=== PATIENT | male | born 1945 | race Caucasian/White ===

== ENCOUNTER → 2019-12-14 11:00 | Outpatient (BNVA) | payer MEDICARE, OTHER, SELFPAY | PROVIDERS: Family Provider Family Medicine; PCP Family Medicine; Visit Provider Nurse Practitioner Family | DX: I10 Essential (primary) hypertension (principal); N52.9 Male erectile dysfunction, unspecified; Z79.899 Other long term (current) drug therapy; E04.1 Nontoxic single thyroid nodule; E78.2 Mixed hyperlipidemia; R53.83 Other fatigue; E11.9 Type 2 diabetes mellitus without complications; R79.89 Other specified abnormal findings of blood chemistry | CPT/HCPCS: 80053; 80061; 81001; 83036; 84403; 84439; 84443; 84481; 85025 ==

== ENCOUNTER → 2020-02-12 08:52 | Outpatient (BNVA) | payer MEDICARE, OTHER, SELFPAY | PROVIDERS: Family Provider Family Medicine; PCP Family Medicine; Visit Provider Nurse Practitioner Family | DX: E11.9 Type 2 diabetes mellitus without complications (principal); R79.89 Other specified abnormal findings of blood chemistry; E04.1 Nontoxic single thyroid nodule; I10 Essential (primary) hypertension; E78.2 Mixed hyperlipidemia | CPT/HCPCS: 80053; 80061; 81001; 83036; 84403; 84439; 84443; 84481; 85025 ==

== ENCOUNTER → 2020-05-15 14:09 | Outpatient (BNVA) | payer MEDICARE, OTHER, SELFPAY | PROVIDERS: Family Provider Family Medicine; PCP Nurse Practitioner Family; Visit Provider Dermatology | DX: L30.0 Nummular dermatitis (principal); L85.3 Xerosis cutis; L57.0 Actinic keratosis; B07.8 Other viral warts | CPT/HCPCS: 17000; 17003; 99203 ==

== ENCOUNTER → 2020-11-11 00:01 | Outpatient (BNVA) | payer MEDICARE, OTHER, SELFPAY | PROVIDERS: Family Provider Family Medicine; PCP Nurse Practitioner Family; Visit Provider Nurse Practitioner Family | DX: E78.2 Mixed hyperlipidemia (principal); E11.9 Type 2 diabetes mellitus without complications; E04.1 Nontoxic single thyroid nodule; E55.9 Vitamin D deficiency, unspecified; I10 Essential (primary) hypertension; M54.9 Dorsalgia, unspecified; G89.29 Other chronic pain | CPT/HCPCS: 80053; 80061; 81003; 82306; 83036; 84439; 84443; 84481; 85025 ==

== ENCOUNTER → 2021-02-23 09:07 | Outpatient (BNVA) | payer MEDICARE, OTHER, SELFPAY | PROVIDERS: Family Provider Family Medicine; PCP Nurse Practitioner Family; Visit Provider Nurse Practitioner Family | DX: E11.9 Type 2 diabetes mellitus without complications (principal); E78.2 Mixed hyperlipidemia; E04.1 Nontoxic single thyroid nodule; R79.89 Other specified abnormal findings of blood chemistry; E55.9 Vitamin D deficiency, unspecified; I10 Essential (primary) hypertension | CPT/HCPCS: 80053; 80061; 81003; 83036; 84402; 84403; 84439; 84443; 84481; 85025 ==

== ENCOUNTER → 2021-05-15 14:44 | Outpatient (BNVA) | payer MEDICARE, OTHER, SELFPAY | PROVIDERS: PCP Nurse Practitioner Family; Visit Provider Nurse Practitioner Family | DX: Z20.822 Contact with and (suspected) exposure to COVID-19 (principal) | CPT/HCPCS: 87635 ==

== ENCOUNTER 2021-05-19 12:39 | Outpatient (CLI) | payer MEDICARE, OTHER, SELFPAY ==
--- NOTE | 2021-05-19 13:05 | PFTS_ITS ---
Date of Study:05/19/21 Date of Dictation:05/19/21 MECHANICS: Post bronchodilator Forced vital capacity (FVC) is normal. Post bronchodilator Forced expiratory volume in one second (FEV1) is normal FEV1/FVC is normal. FLOW VOLUME LOOP: normal . LUNG VOLUMES: not measured DIFFUSING CAPACITY FOR CARBON MONOXIDE: not measured . INTERPRETATION: The spirometry is normal. MTDD
== END 2021-05-19 12:40 | disposition home or self-care (01) ==
LOC: RT 12:40
PROVIDERS: PCP Nurse Practitioner Family; Visit Provider Nurse Practitioner Family
DX: J44.9 Chronic obstructive pulmonary disease, unspecified (principal)
CPT/HCPCS: 94010

== ENCOUNTER → 2021-08-04 10:10 | Outpatient (BNVA) | payer MEDICARE, OTHER, SELFPAY | PROVIDERS: PCP Nurse Practitioner Family; Visit Provider Nurse Practitioner Family | DX: R07.9 Chest pain, unspecified (principal); E11.9 Type 2 diabetes mellitus without complications; J22 Unspecified acute lower respiratory infection | CPT/HCPCS: 71046 ==

== ENCOUNTER → 2021-08-05 11:28 | Outpatient (BNVA) | payer MEDICARE, OTHER, SELFPAY | PROVIDERS: PCP Nurse Practitioner Family; Visit Provider Nurse Practitioner Family | DX: E11.9 Type 2 diabetes mellitus without complications (principal); Z09 Encounter for follow-up examination after completed treatment for conditions other than malignant neoplasm | CPT/HCPCS: 80053; 83036; 85025 ==

== ENCOUNTER 2021-08-31 10:21 | Outpatient (CLI) | payer MEDICARE, OTHER, SELFPAY ==
--- NOTE | 2021-08-31 11:00 | US_ITS ---
WS: [id number] ULTRASOUND ABDOMEN LIMITED CLINICAL INFORMATION: R10.11 - Right upper quadrant pain COMPARISON: None. FINDINGS: Liver Size: Enlarged Craniocaudal length: 19.8 cm. Echogenicity: Coarse heterogeneous Surface nodularity: None. Mass (size and location): None. Bile ducts Intrahepatic ducts: Normal. Common bile duct diameter: 0.4 cm. Gallbladder Gallbladder wall thickening with a small amount of pericholecystic edema or fluid. Gallstones: None. Gallbladder sludge: None. Gallbladder wall thickening: Mild Pericholecystic fluid: Present Sonographic Noguera sign: Absent. Pancreas Normal as visualized. Right kidney: Normal. Hydronephrosis: None. Size: 12.0 cm x 6.2 cm x 5.6 cm. Abdominal aorta and IVC Visualized portions are normal. Ascites: None. US/US abdomen limited [id number] IMPRESSION: 1. Hepatomegaly with coarse hepatic echogenicity likely due to fatty infiltrat ion or hepatic parenchymal disease. Recommend Correlation with liver function t ests. 2. Minimal gallbladder wall thickening. Small amount of pericholecystic fluid may be due to hepatic disease. Recommend correlation with biliary function stud ies. Gallbladder function can be further evaluated with HIDA scan if suspicion for cholecystitis. 3. No cholelithiasis or gallbladder sludge 4. Normal common bile duct. 5. No hydronephrosis right kidney
--- NOTE | 2021-08-31 13:00 | CT_ITS ---
WS: [id number] CT CHEST TECHNIQUE: Contrast enhanced CT of the chest with coronal and sagittal reformatted images. CLINICAL INFORMATION: Q25.46 - Tortuous aortic arch COMPARISON: None. DLP: 967.[address] scans at [facility] use at least one of these dose optimization techniques: automated e xposure control; mA and/or kV adjustment per patient size (includes targeted exams where dose is matc hed to clinical indication); or iterative reconstruction. FINDINGS: Mild chronic emphysematous changes. No acute pulmonary infiltrates. No focal pneumonia or pleural flu id. No acute pulmonary infiltrates. Slight fibrosis in the right lower lobe medially. Diffuse fatty infiltration liver. Small esophageal hiatal hernia. Left adrenal nodule likely adenoma measuring 14 mm. Right adrenal gland is normal. Nodular enlarged heterogeneous thyroid. This can be followed up with ultrasound on an elective basis. Right lower pole thyroid nodule extends into the upper mediastinum. Normal caliber thoracic aorta. No evidence of thoracic aortic aneurysm. Normal caliber descending tho racic aorta and aortic arch. No mediastinal or hilar lymphadenopathy. A few calcified granulomas. Amandeep cified anterior mediastinal and hilar lymph nodes. CT/CT chest w con* [id number] IMPRESSION: 1. Mild chronic emphysematous changes. No acute pulmonary infiltrates. 2. Normal caliber ascending and descending thoracic aorta. No aneurysm. 3. Dense coronary calcification. 4. No mediastinal or hilar lymphadenopathy. Small left adrenal adenoma. 5. Heterogeneous enlarged nodular thyroid. Recommend correlation with thyroid function studies. This can be followed up with ultrasound on an elective basis
[2021-08-31] MEDS: iohexol 300 mg/mL 100 mL Btl IV (13:08)
== END 2021-08-31 10:22 | disposition home or self-care (01) ==
PROVIDERS: PCP Nurse Practitioner Family; Visit Provider Nurse Practitioner Family
DX: Q25.46 Tortuous aortic arch (principal); R07.9 Chest pain, unspecified; D35.02 Benign neoplasm of left adrenal gland; E04.9 Nontoxic goiter, unspecified
CPT/HCPCS: 71260; 76705

== ENCOUNTER → 2021-10-12 13:33 | Outpatient (BNVA) | payer MEDICARE, OTHER, SELFPAY | PROVIDERS: PCP Nurse Practitioner Family; Referring Provider Nurse Practitioner Family; Visit Provider Internal Medicine | DX: E11.9 Type 2 diabetes mellitus without complications (principal); R79.89 Other specified abnormal findings of blood chemistry; E04.1 Nontoxic single thyroid nodule; E05.90 Thyrotoxicosis, unspecified without thyrotoxic crisis or storm; D35.00 Benign neoplasm of unspecified adrenal gland; R53.83 Other fatigue; N52.9 Male erectile dysfunction, unspecified; I25.10 Atherosclerotic heart disease of native coronary artery without angina pectoris; I10 Essential (primary) hypertension; Z87.891 Personal history of nicotine dependence | CPT/HCPCS: 99204 ==

== ENCOUNTER 2021-11-25 10:17 | Outpatient (CLI) | payer MEDICARE, OTHER, SELFPAY ==
[2021-11-25] MEDS: iohexol 300 mg/mL 50 mL Btl PO (11:26)
[2021-11-25 12:46] LABS: Blood Urea Nitrogen 14 mg/dL (8-23)
--- NOTE | 2021-11-25 13:00 | CT_ITS ---
WS: [id number] CT ABDOMEN PELVIS TECHNIQUE: Contrast-enhanced CT of the abdomen and pelvis with coronal and sagittal reformatted image s. CLINICAL INFORMATION: R10.9 - Unspecified abdominal pain COMPARISON: DLP: 468.[address] scans at [facility] use at least one of these dose optimization techniques: automated e xposure control; mA and/or kV adjustment per patient size (includes targeted exams where dose is matc hed to clinical indication); or iterative reconstruction. FINDINGS: Mild diffuse fatty infiltration liver. Normal portal vein and splenic vein. Mild fatty atrophy of the pancreas. Normal gallbladder. Small esophageal hiatal hernia. Slight hazy atelectasis and fibrosis i n the lung bases. Normal spleen. Small bilateral adrenal lesions likely adenomas largest in the left measuring 15 mm similar in appearance to 2009. Normal renal parenchymal enhancement. No hydronephrosi s. Right lower pole renal cyst measuring 1.7 CM. Urine distended bladder. Enlarged calcified prostate with heterogeneous nodular enhancement measuring 5.1 CM. Normal caliber abdominal aorta. Aortic calcification. No aneurysm. A few slightly prominent lymph nodes in the upper abdomen likely reactive and similar in appearance to 2009. Normal sigmoid [place]. Right hemicolectomy. Anastomosis in the mid transverse colon. Additional small bowel anastomosis in the right lower quadrant. No evidence of small or large bowel obstruction. CT/CT abdomen pelvis w con* [id number] IMPRESSION: 1. Mild diffuse fatty infiltration of the liver. 2. Small bilateral adrenal adenomas left greater than right similar to 2009 3. Small esophageal hiatal hernia. 4. Enlarged heterogeneously enhancing nodular prostate measuring 5.1 CM. Recom mend correlation PSA. Evidence of bladder outlet obstruction. 5. Evidence of prior right hemicolectomy. No evidence of small or large bowel obstruction. 6. No other acute findings.
[2021-11-25] MEDS: iohexol 300 mg/mL 100 mL Btl IV (13:17)
== END 2021-11-25 10:18 | disposition home or self-care (01) ==
LOC: RAD 10:19
PROVIDERS: PCP Nurse Practitioner Family; Visit Provider Surgery
DX: Z90.49 Acquired absence of other specified parts of digestive tract (principal); D35.00 Benign neoplasm of unspecified adrenal gland; K76.0 Fatty (change of) liver, not elsewhere classified; D35.02 Benign neoplasm of left adrenal gland; D35.01 Benign neoplasm of right adrenal gland; K44.9 Diaphragmatic hernia without obstruction or gangrene; N40.0 Benign prostatic hyperplasia without lower urinary tract symptoms
CPT/HCPCS: 74177; 82565; 84520

== ENCOUNTER → 2021-12-01 11:14 | Outpatient (BNVA) | payer MEDICARE, OTHER, SELFPAY | PROVIDERS: PCP Nurse Practitioner Family; Visit Provider Nurse Practitioner Family | DX: N40.2 Nodular prostate without lower urinary tract symptoms (principal); E11.9 Type 2 diabetes mellitus without complications; Z12.5 Encounter for screening for malignant neoplasm of prostate | CPT/HCPCS: 80053; 85025; G0103 ==

== ENCOUNTER 2022-01-18 09:35 | Outpatient (CLI) | payer MEDICARE, OTHER, SELFPAY ==
--- NOTE | 2022-01-18 09:40 | NM_ITS ---
WS: [id number] NUCLEAR MEDICINE HIDA SCAN CLINICAL INFORMATION: THICKENING OF WALL OF GALLBLADDER TECHNIQUE: Following intravenous administration of 8.0 mCi of technetium 99m mebrofenin, images of th e abdomen were obtained over the course of 60 minutes. Next, gallbladder ejection fraction was determ ined by obtaining preprandial and one-hour postprandial images of the gallbladder following oral tico stion of Ensure. COMPARISON: CT November 25, 2021 FINDINGS: Normal hepatic uptake at 5 minutes. Gallbladder is visualized by 10 minutes. No evidence of acute cho lecystitis. Normal common bile duct and small bowel activity. Normal hepatic excretion. Mild hepatome jose luis. Gallbladder ejection fraction 91% within normal limits. NM/NM hepatobiliary w phar* [id number] IMPRESSION: 1. No evidence of acute or chronic cholecystitis. 2. Gallbladder ejection fraction 91% within normal limits.
== END 2022-01-18 09:36 | disposition home or self-care (01) ==
PROVIDERS: PCP Registered Nurse; Visit Provider Registered Nurse
DX: K82.8 Other specified diseases of gallbladder (principal)
CPT/HCPCS: 78227; A9537

== ENCOUNTER → 2022-01-27 11:05 | Outpatient (BNVA) | payer MEDICARE, OTHER, SELFPAY | PROVIDERS: PCP Registered Nurse; Visit Provider Internal Medicine | DX: E05.90 Thyrotoxicosis, unspecified without thyrotoxic crisis or storm (principal); E04.1 Nontoxic single thyroid nodule; I10 Essential (primary) hypertension; D35.00 Benign neoplasm of unspecified adrenal gland; R53.83 Other fatigue; N52.9 Male erectile dysfunction, unspecified; I25.10 Atherosclerotic heart disease of native coronary artery without angina pectoris; Z87.891 Personal history of nicotine dependence | CPT/HCPCS: 36415; 83516; 84439; 84443; 84480; 99214 ==

== ENCOUNTER → 2022-04-30 10:51 | Outpatient (BNVA) | payer MEDICARE, OTHER, SELFPAY | PROVIDERS: PCP Registered Nurse; Visit Provider Internal Medicine | DX: E11.9 Type 2 diabetes mellitus without complications (principal); E04.1 Nontoxic single thyroid nodule; E05.90 Thyrotoxicosis, unspecified without thyrotoxic crisis or storm; D35.00 Benign neoplasm of unspecified adrenal gland; R53.83 Other fatigue; Z87.891 Personal history of nicotine dependence; Z79.84 Long term (current) use of oral hypoglycemic drugs | CPT/HCPCS: 99214 ==

== ENCOUNTER 2022-05-06 11:31 | Outpatient (CLI) | payer MEDICARE, OTHER, SELFPAY ==
[2022-05-06 12:41] LABS: Free T4 Free Thyroxine 1.16 ng/dL (0.82-1.77); Thyroid Stimulating Hormone 0.11 uIU/mL (0.27-4.20)
== END 2022-05-06 11:32 | disposition home or self-care (01) ==
LOC: LAB 11:38
PROVIDERS: PCP Registered Nurse; Visit Provider Internal Medicine
DX: E04.1 Nontoxic single thyroid nodule (principal)
CPT/HCPCS: 36415; 84439; 84443

== ENCOUNTER → 2022-08-04 11:38 | Outpatient (BNVA) | payer MEDICARE, OTHER, SELFPAY | PROVIDERS: PCP Registered Nurse; Visit Provider Nurse Practitioner | DX: N39.0 Urinary tract infection, site not specified (principal) | CPT/HCPCS: 87086 ==

== ENCOUNTER → 2022-08-09 09:32 | Outpatient (BNVA) | payer MEDICARE, OTHER, SELFPAY | PROVIDERS: PCP Registered Nurse; Visit Provider Nurse Practitioner | DX: I10 Essential (primary) hypertension (principal); E83.42 Hypomagnesemia | CPT/HCPCS: 80048; 83735; 85025 ==

== ENCOUNTER → 2022-08-17 08:21 | Outpatient (BNVA) | payer MEDICARE, OTHER, SELFPAY | PROVIDERS: PCP Nurse Practitioner; Visit Provider Nurse Practitioner | DX: E11.9 Type 2 diabetes mellitus without complications (principal) | CPT/HCPCS: 83036 ==

== ENCOUNTER 2022-08-18 10:53 | Outpatient (CLI) | payer MEDICARE, OTHER, SELFPAY ==
--- NOTE | 2022-08-18 11:00 | US_ITS ---
WS: [id number] THYROID ULTRASOUND HISTORY: thyroid nodule COMPARISON: None available. Right lobe: 2.0 cm x 2.3 cm x 5.5 cm (w x ap x l). Volume: 13.5 cm3. Mildly enlarged thyroid. Very heterogeneous nodular thyroid. Largest nodule is a spongiform nodule in the superior pole measuring 1.1 x 1.0 x 1.2 cm. There is an additional solid nodule which may be pos terior and external to the thyroid measuring 1.3 x 1.2 x 1.2 cm. This nodule is very difficult to lillian racterize. Additional smaller nodules. Some of these are colloid nodules. Left lobe: 2.1 cm x 3.3 cm x 6.1 cm (w x ap x l). Volume: 21.9 cm3. Enlarged gland with heterogeneity. Hypoechoic nodule in the mid gland measures 1.0 x 0.9 x 1.0 cm. Ad ditional very subtle area of heterogeneity in the superior pole measures 1.5 x 1.0 x 2.1 cm. Isthmus: 0.5 cm. US/US thyroid [id number] IMPRESSION: 1. Enlarged multinodular gland. There is no one nodule that appears more tl rning than another. Some of these nodules are spongy form nodules and colloid c ysts which are benign. 2. There is one nodule in the posterior RIGHT thyroid which may be external to the thyroid. Consider yearly evaluation to evaluate for any interval change. 3. On a prior CT from 08/31/2021 the RIGHT thyroid with very enlarged and exten ded substernal and posterior to the trachea. The entire thyroid has not been im aged by ultrasound.
== END 2022-08-18 10:54 | disposition home or self-care (01) ==
LOC: RAD 10:54
PROVIDERS: PCP Nurse Practitioner; Visit Provider Internal Medicine
DX: E04.2 Nontoxic multinodular goiter (principal); E05.90 Thyrotoxicosis, unspecified without thyrotoxic crisis or storm
CPT/HCPCS: 76536

== ENCOUNTER → 2022-09-09 09:40 | Outpatient (BNVA) | payer MEDICARE, OTHER, SELFPAY | PROVIDERS: PCP Nurse Practitioner; Visit Provider Nurse Practitioner | DX: Z09 Encounter for follow-up examination after completed treatment for conditions other than malignant neoplasm (principal); E11.9 Type 2 diabetes mellitus without complications; R10.9 Unspecified abdominal pain | CPT/HCPCS: 80053; 83036; 85025; 87086 ==

== ENCOUNTER 2022-12-30 07:45 | Outpatient (CLI) | payer MEDICARE, OTHER, SELFPAY ==
--- NOTE | 2022-12-30 08:00 | USCV_ITS ---
Yan Werner Age: 77 Gender: M : 1945 Exam Date: 12/30/2022 08:08 Ordering Phys: Linda ValdovinosP MANAGER GAME Technologist: SANIA Exam Location: [facility] [place] Indication: chest pain BP: / HR: 73 Rhythm: Sinus Technical Quality: Adequate MEASUREMENTS (Male / Female) Normal Values 2D ECHO LV Diastolic Diameter PLAX 5.9 cm 4.2 - 5.9 / 3.9 - 5.3 cm LV Systolic Diameter PLAX 3.7 cm LV Chamber Size 3.4 cm IVS Diastolic Thickness 0.8 cm 0.6 - 1.0 / 0.6 - 0.9 cm IVS Systolic Thickness 1.8 cm LVPW Diastolic Thickness 1.3 cm 0.6 - 1.0 / 0.6 - 0.9 cm LVPW Systolic Thickness 2.4 cm RV Chamber Size 3.0 cm LVOT Diameter 2.0 cm LV Ejection Fraction 2D Teich 66.6 % LV Ejection Fraction MOD 2C 58.0 % LV Ejection Fraction 2C AL 57.2 % LA Diameter 4.4 cm LA Width 3.8 cm LA Height 4.9 cm RA Width 3.7 cm RA Height 3.7 cm Aorta at Sinotubular Diameter 3.9 cm IVC Diameter 1.4 cm M-MODE Aortic Annulus Diameter 3.9 cm LA Ao Ratio MM 1.1 MV E Point Septal Separation 0.9 cm DOPPLER AV Peak Velocity 126.0 cm/s LVOT Peak Velocity 75.3 cm/s AV Area Cont Eq vti 1.7 cm squared AV Area Cont Eq pk 1.9 cm squared MV Area PHT 5.0 cm squared Mitral E to A Ratio 0.6 MV E' Velocity 34.0 cm/s Mitral E to MV E' Ratio 16.9 Mitral E to LV E' Lateral Ratio 18.3 Mitral E to LV E' Septal Ratio 15.6 TR Peak Velocity 212.0 cm/s TR Peak Gradient 18.0 mmHg TR Mean Velocity 153.8 cm/s TR Mean Gradient 11.0 mmHg TR Velocity Time Integral 61.5 cm TV Peak E Velocity 48.0 cm/s Right Atrial Pressure 3.0 mmHg Pulmonary Artery Systolic Pressu 21.0 mmHg RV Acceleration Time 0.1 s RV Ejection Time 0.3 s RV AcT/ET 0.4 FINDINGS Left Ventricle Left ventricle is dilated. Technically limited quality echocardiogram because of poor ultrasonic windows. Grossly LV systolic function is mild to moderately reduced. Regional wall motion abnormalities cannot be accurately assessed because of limited visualization. Grade 1 diastolic dysfunction. Right Ventricle RV is midlly hypokinetic Right Atrium Normal in size Left Atrium Normal in size Mitral Valve Structurally normal mitral valve.Mild mitral regurgitation. Aortic Valve Aortic valve is thickened. No significant stenosis or regurgitation. Tricuspid Valve Mild tricuspid regurgitation. Pulmonary artery systolic pressure is normal. Pulmonic Valve Not well-visualized Pericardium Normal Aorta Aortic root is mildly dilated IVC Appears to be normal CONCLUSIONS Technically limited quality echocardiogram because of poor ultrasonic windows. The left ventricle is dilated. Grossly, LV systolic function is mildly to moderately reduced. Regional wall motion abnormalities cannot be accurately assessed because of limited visualization. RV is mildly hypokinetic Mild mitral regurgitation Mild tricuspid regurgitation Aortic root is mildly dilated No comparison studies are available. For accuarate assessment of LV systolic function and regional wall motion, limited echocardiogram with contrast can be obtained. Odilon White MD (Electronically Signed) Final Date: 01 January 2023 21:24 S
== END 2022-12-30 07:46 | disposition home or self-care (01) ==
PROVIDERS: PCP Nurse Practitioner; Visit Provider Nurse Practitioner
DX: I08.1 Rheumatic disorders of both mitral and tricuspid valves (principal)
CPT/HCPCS: 93306

== ENCOUNTER 2023-04-05 09:26 | Outpatient (CLI) | payer MEDICARE, OTHER, SELFPAY ==
--- NOTE | 2023-04-05 | CT_ITS ---
CT adrenals with and without contrast. HISTORY: BENIGN NEOPLASM OF LEFT ADRENAL GLAND RESULTS CALLED TO SARAH Snow 04/05/23 @14:14; report also faxed to [phone] CT adrenals with and without contrast. HISTORY: BENIGN NEOPLASM OF LEFT ADRENAL GLAND Noncontrast 2 mm imaging is performed through the abdomen with attention to the adrenal glands. Additional 1 minute and 15 minute delayed images are then performed through the adrenal glands. CONTRAST: Omnipaque 350; 95 mL IV. DLP: 1735.[address] scans at [facility] use at least one of these dose optimization techniques: automated exposure control; mA and/or kV adjustment per patient size (includes targeted exams where dose is matched to clinical indication); or iterative reconstruction. COMPARISON: 11/25/2021 and 11/25/2008 Mild pulmonary hyperexpansion at the lung bases. Benign granuloma RIGHT lower lobe. Normal size heart. No pericardial pleural effusion. Small hiatal hernia. RIGHT adrenal mass: 13 x 11 mm. Hounsfield units are negative on the noncontrast study. Absolute washout 80%. LEFT adrenal mass: 15 x 16 mm. Hounsfield units are below 10 on the noncontrast study. Absolute washout 92%. Normal liver and spleen. Normal portal vein. Normal gallbladder. Normal pancreas. No solid renal mass. Cyst in the lower pole RIGHT kidney measures 2.0 cm and stable. Moderate atherosclerosis aorta with ectasia. There is a very small filling defect in the central portal splenic confluence. Likely mild thrombosis. No occlusion. No adenopathy or ascites. Surgical anastomotic sutures in the RIGHT lower quadrant and transverse colon. No recurrent mass. No obstructive pattern the visualized colon. No destructive bone lesions. IMPRESSION: 1. Bilateral benign adrenal adenomas. 2. Small filling defect in the portal splenic vein confluence. Suspicious for nonocclusive thrombus. 3. Postsurgical changes in the RIGHT colon and transverse colon. 4. Hiatal hernia. Notified Yvon Bosch MD at 04/05/2023 2:04 PM. [facility]
[2023-04-05 10:21] LABS: Blood Urea Nitrogen 17 mg/dL (8-23)
[2023-04-05] MEDS: iohexol 350 mg/mL 500 mL Btl (per mL) IV (10:31)
== END 2023-04-05 09:27 | disposition home or self-care (01) ==
LOC: RAD 09:29
PROVIDERS: Radiology Neuroradiology; PCP Nurse Practitioner; Visit Provider Surgery
DX: D35.02 Benign neoplasm of left adrenal gland (principal); D35.01 Benign neoplasm of right adrenal gland; R93.3 Abnormal findings on diagnostic imaging of other parts of digestive tract; Z98.890 Other specified postprocedural states; K44.9 Diaphragmatic hernia without obstruction or gangrene
CPT/HCPCS: 74170; 82565; 84520; Q9967

== ENCOUNTER → 2024-05-09 15:23 | Outpatient (BNVA) | payer MEDICARE, OTHER, SELFPAY | PROVIDERS: PCP Nurse Practitioner; Visit Provider Nurse Practitioner Family | DX: D48.5 Neoplasm of uncertain behavior of skin (principal); L57.0 Actinic keratosis; I78.8 Other diseases of capillaries; L73.8 Other specified follicular disorders; L56.5 Disseminated superficial actinic porokeratosis (DSAP); L82.1 Other seborrheic keratosis; L85.3 Xerosis cutis | CPT/HCPCS: 11102; 17000; 99203 ==